=== PATIENT | female | born 1945 | race Caucasian/White ===

== ENCOUNTER → 2019-03-18 | Outpatient (CLI) | payer MEDICARE ==
[~2019-03-18] MED LIST: IOHEXOL-350 75 ML VIAL IV ONE
== END | disposition home or self-care (01) ==
LOC: RAH 10:23
PROVIDERS: ATTEND Internal Medicine Critical Care Medicine
DX: L03.211 Cellulitis of face (principal)
CPT/HCPCS: 70487; Q9967